=== PATIENT | female | born 1985 | race Caucasian/White ===

== ENCOUNTER 2017-11-29 18:35 | Emergency (ER) | payer OTHER ==
[2017-11-29 20:35] VITALS: BP 115/80
--- NOTE | 2017-11-29 20:53 | UC ---
Throat Pain/Nasal Yrn HPI - HPI Summary HPI Summary: 32 yo female with body aches, sore throat increased over past 24 hours, fever, cough x 3 days. + flu shot. decreased appetite, no N/V. - History of Current Complaint Hx Obtained From: Patient Hx Last Menstrual Period: 12/01/17 ?: No Onset/Duration: Sudden Onset, Lasting Days Severity: Moderate Pain Intensity: 6 Pain Scale Used: 0-10 Numeric <NydiaLashawn - Last Filed: 12/05/17 14:47> <Ariella Torres - Last Filed: 12/06/17 17:44> - History of Current Complaint Chief Complaint: UCGeneralIllness Stated Complaint: NAUSEA, LOW FEVER, CONGESTION, COUGH Time Seen by Provider: 11/29/17 20:52 - Allergies/Home Medications Allergies/Adverse Reactions: Allergies Allergy/AdvReac Type Severity Reaction Status Date / Time Sulfa (Sulfonamide Allergy Unknown Verified 11/29/17 20:31 Antibiotics) Reaction Details Home Medications: Home Medications Ibuprofen TAB* [Motrin TAB* 400 MG] 400 mg PO Q6H PRN MDD \ 11/29/17 [History Confirmed 11/29/17] PMH/Surg Hx/FS Hx/Imm Hx Previously Healthy: Yes - Surgical History Surgical History: None - Family History Known Family History: Positive: None - Social History Alcohol Use: Weekly Substance Use Type: None Smoking Status (MU): Never Smoked Tobacco <Cammie Staffordica - Last Filed: 12/05/17 14:47> Review of Systems Constitutional: Fever, Chills, Fatigue ENT: Sore Throat Is Patient Immunocompromised?: No All Other Systems Reviewed And Are Negative: Yes <Lashawn Stafford - Last Filed: 12/05/17 14:47> Physical Exam Triage Information Reviewed: Yes Appearance: Well-Appearing, No Pain Distress, Well-Nourished Vital Signs: Initial Vital Signs Temp 100.1 F 11/29/17 20:29 Pulse 96 11/29/17 20:29 Resp 16 11/29/17 20:29 BP 115/80 11/29/17 20:29 Pulse Ox 97 11/29/17 20:29 Vital Signs Reviewed: Yes Eyes: Positive: Conjunctiva Clear ENT: Positive: Pharyngeal erythema - moderate erythema, no exudates, TMs normal , Uvula midline. Negative: Tonsillar swelling, Tonsillar exudate, Dental tenderness, Sinus tenderness Neck: Positive: Supple, Nontender, Enlarged Nodes @ - mild submand Respiratory: Positive: Chest non-tender, Lungs clear, Normal breath sounds, No respiratory distress, No accessory muscle use. Negative: Crackles, Rhonchi, Stridor, Wheezing Cardiovascular: Positive: RRR, No Murmur <Cammie Staffordica - Last Filed: 12/05/17 14:47> Vital Signs: Initial Vital Signs Temp 100.1 F 11/29/17 20:29 Pulse 96 11/29/17 20:29 Resp 16 11/29/17 20:29 BP 115/80 11/29/17 20:29 Pulse Ox 97 11/29/17 20:29 <Ariella Torres - Last Filed: 12/06/17 17:44> Throat Pain/Nasal Course/Dx - Course Course Of Treatment: rapid strep and flu negative, follow up with PCP, conservative treatment. - Differential Dx/Diagnosis Differential Diagnosis/HQI/PQRI: Influenza, Valentin's Angina, Otitis Media, Pharyngitis Provider Diagnoses: pharyngitis <Lashawn Stafford - Last Filed: 12/05/17 14:47> Discharge <Lashawn Stafford - Last Filed: 12/05/17 14:47> <Ariella Torres - Last Filed: 12/06/17 17:44> - Discharge Plan Condition: Fair Disposition: HOME Prescriptions: Dextromethorphan/Benzocaine [Cepacol Sorethroat-Cough Glenn] 1 each PO Q6HR PRN # 20 lozenge PRN Reason: sore throat Patient Education Materials: Pharyngitis (ED) Forms: *Work Release Referrals: Funmilayo Laurent [Primary Care Provider] - Additional Instructions: - Increased fluid intake - Increase rest - over the counter medications for symptoms- ie motrin, tylenol. - FOllow up with Primary physician if no improvement within 3-4 days - GO to ER with neck pain, headache not better with medication, or fever >104 Attestation Statement User Type: Provider - I was available for consult. This patient was seen by the KW[facility]. The patient was not presented to, seen by, or examined by me. Liane <Ariella Torres - Last Filed: 12/06/17 17:44>
== END 2017-11-29 21:23 | disposition home or self-care (01) ==
LOC: UCCORT 18:35
DX: J02.9 Acute pharyngitis, unspecified (principal); M79.1 Myalgia; R50.9 Fever, unspecified; R05 Cough; R53.83 Other fatigue; Z88.2 Allergy status to sulfonamides
CPT/HCPCS: 87502; 87651; 99212; G0463